=== PATIENT | male | born 1945 | race Caucasian/White ===

== ENCOUNTER 2021-09-14 17:53 | Emergency (ER) | payer MEDICARE, BC ==
[~2021-09-14] VITALS: Ht 172.7 cm; Wt 74.8 kg
--- NOTE | 2021-09-14 17:59 | NUR ---
PT BIB FROM HOME HERE FOR REGENERON INFUSION,TESTED POSITIVE TO COVID-19 09/11/2021,C/O COUGH,BODY ACHE 09/09/2021. PT A/OX4. TOELRATING R/A WELL WITH NO SOB AT 95%. DENIES PAIN. CONNECTED PT TO POX AND MONITOR.
[2021-09-14] MEDS ORDERED: CASIRIVIMAB IV ONE (18:10)
[2021-09-14] MEDS ORDERED: SODIUM CHLORIDE IV ONE (18:10)
[2021-09-14] MEDS ORDERED: IMDEVIMAB IV ONE (18:10)
[2021-09-14] MEDS ORDERED: MISCELLANEOUS MED 1 EA EA IV ONE (18:30)
--- NOTE | 2021-09-14 18:50 | NUR ---
IVF INFUSION COMPLETED,NO ADVERSE RXN NOTED,NS FLUSH INFUSING
--- NOTE | 2021-09-14 19:06 | NUR ---
RESTING COMFORTABLY,VSS,ENDORSE TO KARYN RN FOR CARLIN
--- NOTE | 2021-09-14 19:46 | NUR ---
Patient discharged to home in stable condition. Written and verbal after care instructions given. Patient verbalizes understanding of instruction.
[2021-09-14 19:47] VITALS: BP 130/66
== END 2021-09-14 19:47 | disposition home or self-care (01) ==
LOC: ER 17:56
DX: U07.1 COVID-19 (principal); R53.1 Weakness
CPT/HCPCS: 96365; 99285; J7030